=== PATIENT | male | born 2000 | race Caucasian/White ===

== ENCOUNTER → 2020-06-22 12:30 | Outpatient (CLI) | payer SELFPAY ==
--- NOTE | ~2020-06-22 | XR_ITS ---
EXAMINATION: XR chest 2V EXAM DATE: 06/22/2020 13:12 INDICATION: Chest pain, pleurodynia. Symptoms intermittent for 2 months. TECHNIQUE: Frontal and lateral projections of the chest obtained and reviewed. There is no prior ene dy for comparison. FINDINGS: The lungs are clear. There are no pleural effusions. The cardiomediastinal silhouette is within normal limits. There is no pneumothorax suspected. The bones and soft tissues are unremarka ble. IMPRESSION: 1. No acute cardiopulmonary findings. 2. Hyperinflation. Reviewed, dictated and finalized at location A.
== END ==
DX: R07.9 Chest pain, unspecified (principal); R91.8 Other nonspecific abnormal finding of lung field
CPT/HCPCS: 71046

== ENCOUNTER 2025-02-10 09:25 | Outpatient (CLI) | payer BC, SELFPAY ==
--- OUTSIDE RECORDS SUMMARY | 2025-02-10 10:02 | XMS_ITS | Encounter Summary ---
Author Organization [facility] Address [address] [place] [id number] Care Team Providers Care Statistical Clerk Name Role Phone None, Provider Primary Care Provider Unavaila ble Encounter Details Date Type Department Care Team (Late st Contact Info) Description 09/03/[address] [facility] Conversion Md, Generic Conversion, Social History Tobacco Use Types Packs/Day Years Used Date Smoking Tobacco: Never Assessed Sex and Gender Information Value Date Recorded Sex Assigned at Not on file Legal Sex Male 6:46 PM CDT Gender Identity Not on file Sexual Orientation Not on file documented as of this encounter Plan of Treatment Not on file documented as of this encounter Visit Diagnoses Not on filedocumented in this encounter Care Teams Statistical Clerk Relationship Specialty Start Date End Date None, Provider, PCP - General UNKNOWN PHYSICIAN SPECIALTY 11/20/22 documented as of this encounter
--- OUTSIDE RECORDS SUMMARY | 2025-02-10 10:02 | XMS_ITS | Clinical Summary ---
Author Organization [facility] Address [address] [place] [id number] Care Team Providers Care Guest Specialist Name Role Phone None, Provider MD Primary Care Provider Unavaila ble Allergies No known active allergies Medications No known medications Social History Tobacco Use Types Packs/Day Years Used Date Smoking Tobacco: Never Assessed Sex and Gender Information Value Date Recorded Sex Assigned at Not on file Legal Sex Male 6:46 PM CDT Gender Identity Not on file Sexual Orientation Not on file Last Filed Vital Signs Vital Sign Reading Time Taken Comments Blood Pressure 126/69 11/20/2022 8:22 PM TEAR DOWN MAN Pulse 75 11/20/2022 8:22 PM TEAR DOWN MAN Temperature 37 C (98.6 F) 11/20/2022 8:22 PM TEAR DOWN MAN Respiratory Rate 16 11/20/2022 8:22 PM TEAR DOWN MAN Oxygen Saturation 97% 11/20/2022 8:22 PM TEAR DOWN MAN Inhaled Oxygen Concentration - - Weight 68 kg (150 lb) 11/20/2022 8:22 PM TEAR DOWN MAN Height 190.5 cm (6' 3 ) 11/20/2022 8:22 PM TEAR DOWN MAN Body Mass Index 18.75 11/20/2022 8:22 PM TEAR DOWN MAN Plan of Treatment Health Maintenance Due Date Last Done Comments Annual Physical 2001 Hepatitis C 2016 DTaP, Tdap and Td Vaccines (7 - Td or Tdap) 05/07/2022 05/07/2012, 02/09/2004, 02/09/2004, Additional history exists COVID-19 Vaccine ( season) 2024 Hepatitis B Vaccines Completed 02/06/2000, 02/06/2000, 01/03/1999, Additional history exists HPV Vaccines Completed 11/07/2012, 06/29, 05/07/2012 Meningococcal Vaccine Completed 06/07/2016, 012 Meningococcal B Vaccine Aged Out No l onger eligible based on patient's age to complete this topic Pneumococcal Vaccine: Pediatrics (0 to 5 Years) and At-Risk Patients (6 to 49 Years) Aged Out No longer eligible based on patient's age to complete this topic RSV Immunizations Under 20 Months Aged Out No longer eligible based on patient's age to complete this topic Insurance [facility] Advance Directives Documents on File Type Date Recorded Patient [employer] Inspector Expl anation Advance Directives and Living Will 05/24/2016 12:00 AM [employer] Advance Directives and Living Will 06/11/2013 12:00 AM [employer] Advance Directives and Living Will 12/18/2011 12:00 AM [employer] Care Teams Guest Specialist Relationship Specialty Start Date End Date None, Provider, MD PCP - General UNKNOWN PHYSICIAN SPECIALTY 11/20/22
[2025-02-10 11:11] LABS: Basophils Absolute Auto 0.1 K/mm3 (0.0-0.1); Eosinophils Absolute Auto 0.2 K/mm3 (0-0.3); Eosinophils Percent Auto 5.6 % (0-4.4); Hematocrit 47.7 % (42.0-52.0); Immature Granulocyte Absolute 0.01 K/mm3 (0.00-0.031); Immature Granulocyte Percent A 0.2 % (0-0.5); Lymphocytes Absolute Auto 1.55 K/mm3 (0.9-3.2); Lymphocytes Percent Auto 37.8 % (18.3-44.2); Mean Corpuscular HGB Conc 33.5 g/dl (32-36); Mean Corpuscular Hemoglobin 30.3 pg (26-34); Mean Corpuscular Volume 90.3 fl (80-100); Mean Platelet Volume 9.7 fl (7.4-10.4); Monocytes Absolute Auto 0.3 K/mm3 (0.1-0.6); Monocytes Percent Auto 8.3 % (2.6-8.5); Neutrophils Absolute Auto 1.9 K/mm3 (1.3-6.7); Neutrophils Percent Auto 46.1 % (45.5-73.1); Platelet Count Result 259 k/mm3 (150-375); Red Blood Count 5.28 M/mm3 (4.6-6.20); White Blood Count 4.1 K/mm3 (4.5-10.0)
[2025-02-10 11:59] LABS: Iron 172 ug/dL (49-181)
[2025-02-10 12:05] LABS: Alanine Aminotransferase 60 U/L (6-50); Albumin Level 4.8 g/dL (3.5-5.1); Alkaline Phosphatase 61 U/L (38-126); Anion Gap 7 mmol/L (4-12); Aspartate Amino Transferase 53 U/L (17-59); Bilirubin,Total 2.1 mg/dL (0.2-1.3); Blood Urea Nitrogen 15 mg/dL (9-20); Calcium 9.1 mg/dL (8.4-10.2); Carbon Dioxide 30 mmol/L (22-30); Chloride 101 mmol/L (98-107); Cholesterol 167 mg/dL (0-200); Estimated Glomerular Filt Rate > 60; Glucose 93 mg/dL (65-110); HDL Direct 68 mg/dL; Potassium 4.5 mmol/L (3.4-5.0); Sodium 138 mmol/L (137-145); Triglycerides 55 mg/dL (<150)
[2025-02-10 12:08] LABS: Percent Iron Saturation 55 % (20-50)
[2025-02-10 12:12] LABS: LDL Cholesterol Direct 80 mg/dL
[2025-02-10 12:17] LABS: Free T4 Free Thyroxine 1.26 ng/dL (0.78-2.19)
[2025-02-10 12:32] LABS: Vitamin D 25 Hydroxy 45.3 ng/mL
[2025-02-10 12:35] LABS: Thyroid Stimulating Hormone 0.766 uIU/mL (0.465-4.680)
[2025-02-12 15:19] LABS: H pylori, Urea Breath NOT DETECTED (NOT DETECTED)
[2025-02-12 22:39] LABS: Almond (F20) IgE 0.32 kU/L; Brazil Nut (f18) <0.10 kU/L; Brazil Nut (f18) Class 0; Cashew Nut (F202) IgE 0.17 kU/L; Cashew Nut (F202) IgE Class 0/1; Codfish (F3) IgE <0.10 kU/L; Codfish (F3) IgE Class 0; Cow's Milk (F2) IgE <0.10 kU/L; Cow's Milk (F2) IgE Class 0; Egg White (F1) IgE 0.63 kU/L; Egg White (F1) IgE Class 1; Hazelnut (F17) IgE 0.51 kU/L; Hazelnut (F17) IgE Class 1; Macadamia Nut (rf345) 0.81 kU/L; Macadamia Nut (rf345) Class 2; Peanut (F13) IgE 1.62 kU/L; Peanut (F13) IgE Class 2; Salmon (F41) IgE <0.10 kU/L; Salmon (F41) IgE Class 0; Scallop (F338) IgE <0.10 kU/L; Scallop (F338) IgE Class 0; Sesame Seed 0.83 kU/L; Shrimp (F24) IgE 1.27 kU/L; Soybean (F14) IgE 0.37 kU/L; Soybean (F14) IgE Class 1; Tuna (F40) <0.10 kU/L; Tuna (F40) Class 0; Walnut (F256) IgE 0.18 kU/L; Walnut (F256) IgE Class 0/1; Wheat (F4) IgE 0.36 kU/L; Wheat (F4) IgE Class 1
[2025-02-13 20:37] LABS: Alternaria alternata IgE <0.10 kU/L; Alternaria alternata IgE Class 0; Aspergillus fumigatus IgE <0.10 kU/L; Bermuda Grass (G2) IgE <0.10 kU/L; Bermuda Grass (G2) IgE Class 0; Cat Dander IgE 0.39 kU/L; Cat Dander IgE Class 1; Cladosporium herbarum IgE <0.10 kU/L; Cladosporium herbarum IgE Clas 0; Cockroach IgE 0.12 kU/L; Cockroach IgE Clas 0/1; Common Ragweed IgE Class 0; Cottonwood IgE <0.10 kU/L; Dermatophagoides Farinae Class 0/1; Dermatophagoides Pterony Class 0/1; Elm (T8) IgE <0.10 kU/L; Elm (T8) IgE Class 0; Hickory/Pecan IgE <0.10 kU/L; Hickory/Pecan IgE Class 0; Immunoglobulin E 39 kU/L (<OR=114); Maple Box Elder IgE Class 0; Mountain Cedar IgE <0.10 kU/L; Mountain Cedar IgE Class 0; Mouse Urine Proteins IgE <0.10 kU/L; Mouse Urine Proteins IgE Class 0; Oak IgE <0.10 kU/L; Peniciliium notatum class 0; Penicillium notatum (M1) IgE <0.10 kU/L; Rough Marsh <0.10 kU/L; Rough Marsh Elder Class 0; Rough Pigweed (W14) IgE <0.10 kU/L; Rough Pigweed (W14) IgE Class 0; Russian Thistle <0.10 kU/L; Sycamore IgE <0.10 kU/L; Sycamore IgE Class 0; Timothy Grass IgE <0.10 kU/L; Timothy Grass IgE Class 0; Walnut Tree IgE <0.10 kU/L; Walnut Tree IgE Class 0; White Ash IgE Class 0; White Mulberry IgE <0.10 kU/L; White Mulberry IgE Class 0
== END 2025-02-10 09:26 | disposition home or self-care (01) ==
LOC: ANHGOSHLAB 09:29
DX: Z00.00 Encounter for general adult medical examination without abnormal findings (principal); R25.1 Tremor, unspecified; R10.13 Epigastric pain; J30.9 Allergic rhinitis, unspecified
CPT/HCPCS: 36415; 80053; 80061; 82306; 82607; 82728; 82785; 83013; 83540; 83550; 84439; 84443; 85025; 86003

== ENCOUNTER 2025-03-19 09:21 | Outpatient (CLI) | payer BC, SELFPAY ==
--- NOTE | ~2025-03-19 | US_ITS ---
Limited Abdominal Sonogram: Real-time sonographic imaging of the right upper quadrant was performed. Clinical History: Abdominal pain Findings: The liver appears normal with no evidence of mass lesion or bile duct dilatation. Main por joyce vein demonstrates normal direction of flow. The gallbladder is well distended, and appears normal with no evidence of gallstone or wall thickening. The common bile duct measures 3 mm. The visualize d pancreas, aorta, and IVC are unremarkable. Impression: No significant abnormality seen. Reviewed, dictated and finalized at location . Impression: No significant abnormality seen.
== END 2025-03-19 09:22 | disposition home or self-care (01) ==
LOC: GOSHIMG 09:22
PROVIDERS: PCP Family Medicine; Visit Provider Family Medicine
DX: R10.13 Epigastric pain (principal); R17 Unspecified jaundice; R74.8 Abnormal levels of other serum enzymes
CPT/HCPCS: 76705